=== PATIENT | female | born 1965 | race Caucasian/White ===

== ENCOUNTER 2020-09-17 11:05 | Emergency (ER) | payer OTHER ==
[~2020-09-17] VITALS: Ht 167.6 cm; Wt 70.3 kg
[2020-09-17] MEDS ORDERED: OXYCODONE/APAP 5-325 MG TABLET PO ONE (11:30)
[2020-09-17] MEDS ORDERED: OXYCODONE/APAP 5-325 MG TABLET ONE (11:33)
[2020-09-17] MEDS ORDERED: IBUPROFEN 400 MG TABLET PO ONE (11:45)
[2020-09-17] MEDS ORDERED: IBUPROFEN 400 MG TABLET ONE (11:49)
--- NOTE | 2020-09-17 12:42 | NUR ---
Patient discharged to home in stable condition. Written and verbal after care instructions given. Patient verbalizes understanding of instructions. Stressed follow up or return to ER for worsening s/s.
== END 2020-09-17 12:42 | disposition home or self-care (01) ==
LOC: ER 11:05
DX: S13.4XXA Sprain of ligaments of cervical spine, initial encounter (principal); S49.92XA Unspecified injury of left shoulder and upper arm, initial encounter; M54.5 Low back pain; R51.9 Headache, unspecified; V43.53XA Car driver injured in collision with pick-up truck in traffic accident, initial encounter; Y92.411 Interstate highway as the place of occurrence of the external cause; E78.00 Pure hypercholesterolemia, unspecified; G70.00 Myasthenia gravis without (acute) exacerbation
CPT/HCPCS: A4663